=== PATIENT | male | born 1970 | race Caucasian/White ===

== ENCOUNTER 2016-11-13 14:54 | Inpatient (IN) | payer MEDICARE ==
--- NOTE | ~2016-11-13 | CN ---
Consultation Report [facility] [address] [place]. [address] NAME: STEVE TORRES : 70 STATUS : ADM IN PAT#: [id number] AGE: 46 ADM/REG DATE : 11/13/16 MR#: [id number] REPORT SERV DATE: 11/13/16 DICTATED BY: DATE: REPORT STATUS : Draft TRANSCRIBED BY: MODL DATE: 11/13/16 NEUROLOGY CONSULTATION DATE OF CONSULTATION: 11/13/2016 REASON FOR CONSULT: Gait abnormality. HISTORY OF PRESENT ILLNESS: This is a 46-year-old male who presented to [facility] as a direct admit. The patient was noted to have seizure as well as increasing gait abnormalities with dysphagia over the weekend, presented to [facility] Emergency Department with the CT scan concerning for possible recurrent tumor versus postsurgical changes versus possible bleeding in the right occipital area. The patient does have previous diagnosis of oligodendroglioma status post resection at [facility]. The patient was subsequently transferred to [facility], was unhappy with the medical care received and was subsequently discharged home although the patient was noted to have persistent symptoms including difficulty ambulating as well as dysphagia with the patient also noted to have taking a long time to answer question according to the family, mild dysarthria with the patient noted to have gait abnormality problem with the patient noted to have staggering and balance issues. The patient as a result was seen by outpatient neurologist, Dr. Welsh who admitted the patient for further evaluation and treatment. The patient otherwise denies any focal weakness and denies any focal numbness. The patient denies any diplopia and denies any nausea or vomiting or worsening headaches. No other changes in medication were reported. The patient does take Tegretol XR as well as Zonegran for seizure with the patient previously placed on Vimpat but unable to obtain medication after discharge. The patient was recently applying for Vimpat assistance program. The patient does have extensive seizure medication trial including Dilantin, Lamictal, Keppra as well as Topamax but was noted to have difficulties tolerating those medications. No other recent changes in medication were reported. PAST MEDICAL HISTORY: The patient's past medical history significant for hypothyroidism, history of seizure, history of oligodendroglioma status post resection as well as history of atrial fibrillation, status post ablation, hyponatremia in the past with the patient noted to have allergy to Dilantin, Lamictal, Keppra, and Topamax with patient's home medications consists of Tegretol as well as Synthroid, Zonegran, Effexor. SOCIAL HISTORY: The patient denies tobacco, alcohol, or recreational drug usage. REVIEW OF SYSTEMS: Negative except for those mentioned in the HPI. FAMILY HISTORY: Significant for hypertension, pacemaker placement, coronary artery disease. PHYSICAL EXAMINATION: VITAL SIGNS: At the time of evaluation, the patient does not have admission vital signs as Consultation Report [address] [address] NAME: STEVE TORRES : 70 STATUS : ADM IN PAT#: [id number] AGE: 46 ADM/REG DATE : 11/13/16 MR#: [id number] REPORT SERV DATE: 11/13/16 DICTATED BY: DATE: REPORT STATUS : Draft TRANSCRIBED BY: DAMI DATE: 11/13/16 of yet with the patient's vital signs on 11/10/2016 demonstrated blood pressure of 115/71, with heart rate of 97.9, respirations of 22, and pulse of 85. GENERAL: The patient is well developed, well nourished, in no acute distress. CARDIOVASCULAR EXAMINATION: Regular rate and rhythm. No carotid bruits were otherwise auscultated. PULMONARY EXAMINATION: Clear to auscultation bilaterally. NEUROLOGICAL EXAMINATION: Generally, the patient is alert oriented to person, place, year, and month. Follows simple and 2-step commands. No dysarthria. No aphasia was otherwise noted. Mild psychomotor retardation was noted at the time of evaluation, was noted to have difficulties with recall. Cranial nerves 2 through 12; pupils equal, round, and reactive to light. Extraocular eye movement was noted to be intact. Mild right upper visual field hemianopsia was noted at the time of evaluation, otherwise was noted to have symmetrical facial expression. Sensation midline. Tongue normal. Normal palatal movement. Normal hearing. The patient demonstrated 5/5 bilateral upper and lower extremity strength. Normal muscle, bulk, and tone with normal [id number] examination without clear ataxia. Deep tendon reflex was 3+ in bilateral upper extremity, 4+ in bilateral lower extremities at the time of evaluation. Mild unsteady gait at time of evaluation. No fall. Normal station. STUDY: Laboratory study is currently pending. CT scan of the brain from 11/10/2016 was reviewed. Hyperdense signal in the right parietal occipital area was seen, difficult to compare from prior MRI regarding any acute changes. IMPRESSION: 1. Gait abnormality. 2. Dysphagia. 3. Seizure. 4. A history of intracranial oligodendroglioma. We will obtain MRI of the brain with and without contrast, the Speech Therapy for modified barium swallow study. We will also check EEG study. We will recommend continue home seizure medication and check laboratory study. Concern for tumor recurrence versus possible seizure versus recurrent stroke. RECOMMENDATION: 1. Continue home seizure medication. 2. MRI of the brain with and without contrast. 3. Vitamin B12, folate, TSH, free T4, ammonia level, as well as the thiamine level with morning labs. 4. EEG. 5. Modified barium swallow study by Speech Therapy. [facility]/DAMI Matteo Coombs Consultation Report [address] [address] NAME: STEVE TORRES : 70 STATUS : ADM IN PAT#: [id number] AGE: 46 ADM/REG DATE : 11/13/16 MR#: [id number] REPORT SERV DATE: 11/13/16 DICTATED BY: DATE: REPORT STATUS : Draft TRANSCRIBED BY: MODL DATE: 11/13/16 MD Everette / [id number] CC: Charanjit Miller NP
--- NOTE | ~2016-11-13 | DS ---
Discharge Summary [facility] [address] [place]. [address] NAME: STEVE TORRES : 70 STATUS : DIS IN PAT#: [id number] AGE: 46 ADM/REG DATE : 11/13/16 MR#: [id number] REPORT SERV DATE: 11/16/16 DICTATED BY: ASHLEY EVANS II DATE: 11/15/16 REPORT STATUS : Draft TRANSCRIBED BY: MODL DATE: 11/15/16 ADMISSION DATE: 11/13/2016 DISCHARGE DATE: 11/15/2016 DISCHARGE DIAGNOSES: 1. Enlarging oligodendroglioma. 2. Gait abnormality. 3. Visual disturbance. 4. Dysphagia. 5. History of atrial fibrillation, not on anticoagulation. 6. Chronic hyponatremia. 7. Hypothyroidism. 8. History of cerebrovascular accident in April 2016. CONSULTS: Matteo Gaviria M.D. with Neurology. BRIEF HISTORY OF PRESENT ILLNESS: The patient is a 46-year-old male with the above history, who presented to [facility] due to more pronounced gait abnormality, visual disturbance, and dysphagia. For detailed history and physical examination, please see my note from 11/13/2016. HOSPITAL COURSE: On admission, the patient had a repeat MRI which showed a large amount of recurrent tumor in the tumor bed previously treated in the right posterior temporal and occipital region. The largely cystic area of absent brain tissue has been fairly well replaced with metastatic recurrence. There was mild mass effect on the ventricular system with anterior displacement of the temporal horn on the right. There was no [id number] shift. In addition, the susceptibility and coplanar images demonstrate extensive amount of hemosiderin deposit in the sulci and throughout the tumor and tumor bed as well as scattered nontumoral areas of involvement in the opposite left hemisphere. Underlying gliotic changes in both hemispheres consistent with history of prior radiation surgery. Dr. Matteo Gaviria evaluated the patient and went over the MRI with Radiology and it did appear that the tumor was larger and more contrast enhancement and mildly more pronounced vasogenic edema. Medication additions and adjustments from Neurology include thiamin and folate supplementation. His Zonegran was increased to 300 mg p.o. q.h.s. Also Decadron 2 mg p.o. b.i.d. He did undergo a swallowing study as he complained of some dysphagia which actually came back normal with no evidence of aspiration. His folate level was mildly low at 4.9. An EEG was done which showed mildly asymmetric background activity with mild breach rhythm most notably in the right parietal area, otherwise predominant occipital rhythm of roughly 8 hertz, no focal abnormalities or seizure activity noted. Overall, the patient seems to be doing well and is able to ambulate with some assistance and tolerating diet and feels well close to back to baseline. His visual field deficit is chronically in his left peripheral field, but no new changes. Dr. Gaviria has advised following up [facility] which will be arranged. At this point, he is otherwise stable for discharge. DISCHARGE MEDICATIONS: 1. Amlodipine 5 mg p.o. daily. Discharge Summary [facility] [id number] [place]. [address] NAME: STEVE TORRES : 70 STATUS : DIS IN PAT#: [id number] AGE: 46 ADM/REG DATE : 11/13/16 MR#: [id number] REPORT SERV DATE: 11/16/16 DICTATED BY: ASHLEY EVANS II DATE: 11/15/16 REPORT STATUS : Draft TRANSCRIBED BY: DAMI DATE: 11/15/16 2. Vitamin C 1000 mg p.o. daily. 3. Aspirin 81 mg p.o. daily. 4. Tegretol 200 mg p.o. q.h.s. 5. Vitamin B12 2000 mcg p.o. daily. 6. Decadron 2 mg p.o. b.i.d. 7. Synthroid 112.5 mcg p.o. daily. 8. Folic acid 1 mg p.o. daily. 9. Prinivil 20 mg p.o. daily. 10.Sodium chloride 1 g p.o. b.i.d. 11.Effexor 150 mg p.o. daily. 12.Thiamine 100 mg p.o. daily. 13.Zonegran 300 mg p.o. q.h.s. DISCHARGE INSTRUCTIONS: The patient will be discharged and follow up with [facility] as scheduled. Otherwise, Home Health with PT and OT has also been arranged. DICTATED BY: MD CELE Soria II/DAMI Ashley Evans II, MD / [id number] CC: MD Jade Soria II, NP
--- NOTE | ~2016-11-13 | EEG ---
Electroencephalogram [facility] [address] [place]. [address] NAME: STEVE TORRES : 70 STATUS : ADM IN PAT#: [id number] AGE: 46 ADM/REG DATE : 11/13/16 MR#: [id number] REPORT SERV DATE: 11/14/16 DICTATED BY: DATE: REPORT STATUS : Draft TRANSCRIBED BY: MODL DATE: 11/14/16 CLINICAL INDICATIONS: Increased confusion, gait abnormality. DESCRIPTION: This EEG was performed using 10/20 electrode placement system. During the EEG study, mildly asymmetric background activity was noted with mild breach rhythm most notably in the right parietal area P4 electrode, otherwise, predominant occipital rhythm of roughly 8 hertz. Photic stimulation was performed. No clear driving response was seen. Hyperventilation was not performed secondary to the patient's underlying medical condition. During the EEG study, the patient achieved drowsy state. No focal abnormalities, seizure activity, or seizure discharge were otherwise noted. INTERPRETATION: This EEG study obtained during awake and drowsy state may be considered abnormal secondary to presence of mild breach rhythm in the right parietal area suggests underlying skull abnormalities or previous surgery. No other focal abnormalities, seizure activity, or seizure discharge were otherwise noted. Of note, normal EEG does not preclude the diagnosis of seizure disorder. Clinical correlation is recommended. [facility]/DAMI Matteo Gaviria MD / [id number] CC: MD Jade Soria II, NP
--- NOTE | ~2016-11-13 | HP ---
History And Physical [facility] [address] [place]. [address] NAME: STEVE TORRES : 70 STATUS : ADM IN [facility]#: [id number] AGE: 46 ADM/REG DATE : 11/13/16 MR#: [id number] REPORT SERV DATE: 11/14/16 DICTATED BY: ASHLEY EVANS II DATE: 11/13/16 REPORT STATUS : Draft TRANSCRIBED BY: MODL DATE: 11/13/16 DATE OF ADMISSION: 11/13/2016 CHIEF COMPLAINT: Gait abnormality, visual disturbance, and dysphagia. BRIEF HISTORY OF PRESENT ILLNESS: The patient is a 46-year-old male with history of anaplastic oligodendroglioma, seizure disorder and atrial fibrillation, who presented to [facility] due to the above-mentioned complaints. The patient urgently had a fairly prolonged seizure this past Saturday and came to [facility] ER and was noted to have progressive increase in a tumor in the right parieto-occipital region with areas of hemorrhagic conversion. He was subsequently sent to [place] for further management. The patient was subsequently apparently discharged from [place], but has continued to note progressive dysphagia, gait abnormality, and visual disturbance. The Hospital Service was consulted for admission for further evaluation. Currently, the patient denies any headache or double vision. He has peripheral vision loss. He has noted difficulty swallowing recently and is now needing more of a walker instead of his usual cane. He has poor balance, but denies any focal weaknesses. REVIEW OF SYSTEMS: 10-point review of systems otherwise negative except for HPI. PAST MEDICAL HISTORY: 1. CVA in April. 2. Chronic hyponatremia. 3. History of atrial fibrillation, not on anticoagulation. 4. Hypothyroidism. 5. Seizure disorder. 6. Anaplastic oligodendroglioma of the brain, status post craniotomy with resection in 1997. Followed at [facility] in [place] with recurrence. SURGICAL HISTORY: Craniotomy as mentioned. HOME MEDICATIONS: Synthroid, sodium chloride tab, carbamazepine, aspirin, atorvastatin, B12, ergocalciferol, lacosamide, venlafaxine. FAMILY HISTORY: Father with hypertension, pacemaker, and coronary artery disease. No history of cancer. SOCIAL HISTORY: The patient lives in [place] with his . He is . Has one stepchild, and occasionally drinks alcohol. Denies any alcohol, though does chew tobacco. No drug use. 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 PHYSICAL EXAMINATION: VITAL SIGNS: Blood pressure 153/86, temperature 98.0, pulse 90, respirations 16, O2 saturation 100% on room air. GENERAL: The patient is alert and oriented x3, in no acute distress. History And Physical [address] [address] NAME: STEVE TORRES : 70 STATUS : ADM IN PAT#: [id number] AGE: 46 ADM/REG DATE : 11/13/16 MR#: [id number] REPORT SERV DATE: 11/14/16 DICTATED BY: ASHLEY EVANS II DATE: 11/13/16 REPORT STATUS : Draft TRANSCRIBED BY: MODL DATE: 11/13/16 NECK: Supple. Nontender. No lymphadenopathy. No thyromegaly. HEENT: Moist mucous membranes. Pupils are equal, round, and reactive to light. Conjunctivae clear. RESPIRATORY: Lungs are clear to auscultation bilaterally. No wheezes, rhonchi, or rales. CARDIOVASCULAR: Regular rate and rhythm. No murmurs, rubs, or gallops. ABDOMEN: Soft, nontender, nondistended. Normoactive bowel sounds. EXTREMITIES: No cyanosis, clubbing, or edema. SKIN: No lesions, rashes, or wounds. NEURO: 5/5 strength in upper and lower extremities bilaterally. No sensory deficits. No obvious focal deficits. RADIOGRAPHIC DATA: CT of the head from 11/10/2016 shows a recurrent tumor in the right parieto-occipital region with some focal areas of increased density within the tumor consistent with possible acute hemorrhage. Tumor size of 3.1 x 1.8 cm versus 1.8 x 1.7 in April of 2016. There was a separate more inferior large central area of hemorrhage of 2.0 x 2.4 cm. Minimal mass effect. ASSESSMENT AND PLAN: The patient is a 46-year-old male with, 1. New gait abnormality, visual disturbance, and dysphagia concerning for progression of brain tumor versus progression of hemorrhage. Neurology was consulted and MRI is pending. Also EEG pending. We will defer to Neurology for further management. 2. Oligodendroglioma. Deferred to Oncology. 3. Seizure disorder. We will continue the patient's home medications and monitor. 4. History of atrial fibrillation. We will hold aspirin for now given concern for possible bleed. 5. History of hypothyroidism. Continue Synthroid. 6. History of chronic hyponatremia. We will continue salt tabs. 7. The patient is full code. [facility]/DAMI Ashley Evans II, MD / [id number] CC: Charanjit Miller NP
[~2016-11-13 14:54] MED LIST: ASA5GR PO; EFFEXXR75 PO; LIPITOR80 MG PO; SOD CHLORIDE1 G1 PO; SYN075 PO; TEGRETOL XR400 MG PO; VIMPAT150 MG PO; VITAMIN B-121000 MC1 PO; VITD PO
[2016-11-13 18:37] LABS: BASOPHILS 1.9 %; BASOPHILS ABSOLUTE 0.11 10/3/uL (0.0-0.16); EOSINOPHILS 2.5 %; EOSINOPHILS ABSOLUTE 0.15 10/3/uL (0.0-0.53); HEMATOCRIT 34.7 % (40.0-51.0); HEMOGLOBIN 12.5 g/dL (13.6-17.8); LYMPHOCYTES 26.9 %; MANUAL DIFF NO %; MEAN CORPUSCULAR VOLUME 91.6 fL (80-100); MEAN PLATELET VOLUME 8.7 fL (9.2-13.0); MONOCYTES 9.3 %; MONOCYTES ABSOLUTE 0.55 10/3/uL (0.21-1.20); NEUTROPHILS 59.4 %; NEUTROPHILS ABSOLUTE 3.53 10/3/uL (2.02-8.40); PLATELET COUNT 290 10/3/uL (150-400); RBC DISTRIBUTION WIDTH 13.1 % (12.0-16.0); RED CELL COUNT 3.79 10/6/uL (4.7-6.1); WHITE BLOOD CELLS 5.9 10/3/uL (4.5-10.5)
[2016-11-13 19:01] LABS: A/G RATIO 1.3 (0.7-1.9); ALBUMIN 3.9 G/DL (3.5-5.0); CALCIUM, SERUM 8.8 MG/DL (8.5-10.4); CHLORIDE, SERUM 98 MMOL/L (96-112); CO2 (CARBON DIOXIDE) 26 MMOL/L (24-34); CREATININE 0.87 MG/DL (0.70-1.30); GFR AFRICAN AMERICAN 120 ML/MIN (>=60); GFR NON AFRICAN AMERICAN 104 ML/MIN (>=60); GLOBULIN 2.9 G/DL (2.5-4.1); POTASSIUM, SERUM 4.5 MMOL/L (3.5-5.3); SGOT(AST) 13 U/L (5-40); SGPT(ALT) 15 U/L (5-65); SODIUM, SERUM 130 MMOL/L (135-148); TOTAL BILIRUBIN 0.3 MG/DL (0-1.2); TOTAL PROTEIN 6.8 G/DL (6.0-8.5); ULTRASENSITIVE TSH 0.889 MCIU/ML (0.358-3.740)
[2016-11-13 19:02] LABS: ALKALINE PHOSPHATASE 39 U/L (45-117); BUN (BLOOD UREA NITROGEN) 8 MG/DL (6-23); GLUCOSE, SERUM 94 MG/DL (60-99)
[2016-11-13] MEDS ORDERED: TEGRETOL XR400 MG PO (21:32)
[2016-11-13] MEDS ORDERED: SODCLTAB PO (21:32)
[2016-11-13] MEDS ORDERED: NORV5 PO (21:32)
[2016-11-13] MEDS ORDERED: PRIN20 PO (21:33)
[2016-11-13] MEDS ORDERED: SYN075 PO (21:33)
[2016-11-13] MEDS ORDERED: ASABAYER PO (21:33)
[2016-11-13] MEDS ORDERED: VITC500 PO (21:33)
[2016-11-13] MEDS ORDERED: ZONEGRAN PO (21:34)
[2016-11-13] MEDS ORDERED: EFFEXOR XR150 MG PO (21:34)
[2016-11-13] MEDS ORDERED: CYANO1000T PO (21:34)
[2016-11-14 06:15] LABS: FREE T4 0.85 NG/DL (0.76-1.46)
[2016-11-14 06:28] LABS: FOLATE 4.9 NG/ML (>5.2); ULTRASENSITIVE TSH 1.63 MCIU/ML (0.358-3.740)
[2016-11-15] MEDS ORDERED: ASAB PO (16:35)
[2016-11-15] MEDS ORDERED: DEX2 PO (16:36)
[2016-11-15] MEDS ORDERED: B1100 PO (16:38)
[2016-11-15] MEDS ORDERED: FOLIC PO (16:38)
[2016-11-15] MEDS ORDERED: ZONEGRAN PO (16:39)
[2016-11-19 22:31] LABS: THIAMINE 4.1 nmol/L (()); THIAMINE MONOPHOSPHATE 1.9 nmol/L (())
== END 2016-11-15 17:29 | disposition home health service (06) | DRG 54 ==
LOC: 2SO 14:54
PROVIDERS: Internal Medicine; Psychiatry & Neurology Neurology
DX: C71.0 Malignant neoplasm of cerebrum, except lobes and ventricles (principal); G93.6 Cerebral edema; I62.9 Nontraumatic intracranial hemorrhage, unspecified; I48.0 Paroxysmal atrial fibrillation; E87.1 Hypo-osmolality and hyponatremia; R13.10 Dysphagia, unspecified; G40.909 Epilepsy, unspecified, not intractable, without status epilepticus; E03.9 Hypothyroidism, unspecified; Z82.49 Family history of ischemic heart disease and other diseases of the circulatory system; Z86.73 Personal history of transient ischemic attack (TIA), and cerebral infarction without residual deficits; Z92.3 Personal history of irradiation
CPT/HCPCS: 70450; 70496; 70498; 70553; 71010; 74230; 80048; 80053; 82140; 82607; 82746; 83735; 84425; 84439; 84443; 84484; 85025; 85610; 85730; 92611-GN; 93005; 95816; 97161-GP; 99285; A9270-GY; A9579; G8978-CJ-GP; G8979-CJ-GP; G8980-CJ-GP; G8996-CJ-GN; G8997-CJ-GN; G8998-CJ-GN; J0360; Q9967